=== PATIENT | male | born 1940 | race Caucasian/White ===

== ENCOUNTER 2016-12-26 12:47 | Observation (INO) | payer MEDICARE, BC ==
[2016-12-26] MEDS ORDERED: NS 0.9% 1000 ML* 1,000 ML IV ONE (13:47)
--- NOTE | 2016-12-26 14:01 | RAD ---
HISTORY: Weakness COMPARISONS: August 30, 2017 VIEWS:1: Single frontal portable view of the chest at 1:34 PM FINDINGS: LINES AND TUBES: None. CARDIOMEDIASTINAL SILHOUETTE: The cardiomediastinal silhouette is normal for portable technique. PLEURA: The costophrenic angles are sharp. No pleural abnormalities are noted. LUNG PARENCHYMA: The lungs are clear. ABDOMEN: The upper abdomen is clear. There is no subphrenic gas. BONES AND SOFT TISSUES: No bone or soft tissue abnormalities are noted. IMPRESSION: NO ACTIVE CARDIOPULMONARY DISEASE.
[2016-12-26 14:56] LABS: Hematocrit 41 % (42-52); Hemoglobin 13.6 g/dl (14.0-18.0); Mean Corpuscular HGB Conc 33 g/dl (31-36); Mean Corpuscular Hemoglobin 30 pg (27-31); Mean Corpuscular Volume 90 fL (80-94); Mean Platelet Volume 8 um3 (7.4-10.4); Red Blood Count 4.62 10^6/ul (4.0-5.4); Red Cell Distribution Width 13 % (10.5-15); White Blood Count 6.3 10^3/ul (3.5-10.8)
[2016-12-26] MEDS: NS 0.9% 1000 ML* 1,000 ML IV ONE ×2 (14:59→17:16)
[2016-12-26 15:02] LABS: Add Diff/Slide Review? Slide Review Added; Comments Flag Yes
[2016-12-26 15:11] LABS: Albumin 3.7 g/dL (3.2-5.2); BUN/Creatinine Ratio 21.4 (8-20); Calcium 8.9 mg/dL (8.6-10.3); EGFR African American 30.1 (>60); EGFR Non-African American 23.4 (>60); Globulin 3.6 g/dL (2-4); Potassium 3.3 mmol/L (3.5-5.0); Total Bilirubin 0.4 mg/dL (0.2-1.0); Total Protein 7.3 g/dL (6.4-8.9)
--- NOTE | 2016-12-26 15:11 | ED ---
Danny Hussein Benjamin, scribed for Roopa Reyes MD on 12/26/16 at 1355 . Complex/Multi-Sys Presentation - HPI Summary HPI Summary: 76yo male c/o V/D since Saturday from the stomach bug. Pt today came to ED for low BP. V/D is now resolved. Pt also had fever and chills, but not anymore. Denies black tarry stool, lightheadedness, SOB, or any urinary symptoms. Hx includes HTN. - History Of Current Complaint Chief Complaint: EDWeakness Time Seen by Provider: 12/26/16 13:27 Hx Obtained From: Patient Onset/Duration: Gradual Onset, Lasting Hours, Still Present Timing: Constant Severity Currently: Mild Severity Initially: Mild Location: Negative Associated Signs And Symptoms: Positive: Weakness - lightheadedness - Allergies/Home Medications Allergies/Adverse Reactions: Allergies Allergy/AdvReac Type Severity Reaction Status Date / Time No Known Allergies Allergy Verified 09/08/16 18:47 Home Medications: Home Medications Aspirin EC Low Dose* [Ecotrin EC Low Dose*] 81 mg PO DAILY 12/26/16 [History Confirmed 12/26/16] Cyanocobalamin TAB* [Vitamin B12 TAB*] 1,000 mcg PO DAILY 12/26/16 [History Confirmed 12/26/16] Lisinopril/HCTZ 20/12.5(NF) [Zestoretic 20/12.5(NF)] 1 tab PO DAILY 12/26/16 [ History Confirmed 12/26/16] Nadolol (NF) 20 mg PO DAILY 12/26/16 [History Confirmed 12/26/16] metroNIDAZOLE TAB* [Flagyl 250 mg TAB*] 500 mg PO TID 12/26/16 [History Confirmed 12/26/16] PMH/Surg Hx/FS Hx/Imm Hx Endocrine/Hematology History: Denies: Hx Diabetes Cardiovascular History: Reports: Hx Hypertension Denies: Hx Angina - heaviness with exertion on occ., Hx Coronary Artery Disease, Hx Hypercholesterolemia, Hx Myocardial Infarction, Hx Pacemaker/ICD, Hx Valvular Heart Disease Respiratory History: Denies: Hx Asthma, Hx Chronic Obstructive Pulmonary Disease (COPD) History: Denies: Hx Dialysis, Hx Renal Disease Sensory History: Denies: Hx Hearing Aid Psychiatric History: Denies: Hx Panic Disorder - Surgical History Surgery Procedure, Year, and Place: LAMINOTOMY T12-L1 AND LAMINECTOMY L3-L4 AND L4-L5 2007. HERNIA 2010. GALLBLADDER Infectious Disease History: No Infectious Disease History: Denies: Traveled Outside the [place] in Last 30 Days - Family History Known Family History: Positive: Hypertension - Social History Alcohol Use: Daily Alcohol Amount: 3 drinks (beer and wine) Substance Use Type: Reports: None Hx Tobacco Use: Yes Smoking Status (MU): Former Smoker Review of Systems Positive: Fever, Chills Eyes: Negative ENT: Negative Cardiovascular: Negative Respiratory: Negative Positive: Vomiting, Diarrhea Genitourinary: Negative Musculoskeletal: Negative Skin: Negative Positive: Weakness Psychological: Normal All Other Systems Reviewed And Are Negative: Yes Physical Exam Triage Information Reviewed: Yes Vital Signs On Initial Exam: Initial Vitals Temp Pulse Resp BP Pulse Ox 97.7 F 66 20 99/53 95 12/26/16 12:49 12/26/16 12:49 12/26/16 12:49 12/26/16 12:49 12/26/16 12:49 Vital Signs Reviewed: Yes Appearance: Positive: Well-Appearing, No Pain Distress, Well-Nourished Skin: Positive: Warm, Skin Color Reflects Adequate Perfusion, Dry Head/Face: Positive: Normal Head/Face Inspection Eyes: Positive: EOMI, ANGEL ENT: Positive: Hearing grossly normal, Pharynx normal, TMs normal Neck: Positive: Supple, Nontender Respiratory/Lung Sounds: Positive: Clear to Auscultation, Breath Sounds Present Cardiovascular: Positive: RRR Abdomen Description: Positive: Nontender, Soft Bowel Sounds: Positive: Present Musculoskeletal: Positive: Strength/ROM Intact Neurological: Positive: Sensory/Motor Intact, Alert, Oriented to Person Place, Time, CN Intact II-III Psychiatric: Positive: Affect/Mood Appropriate Diagnostics - Vital Signs Vital Signs Temp Pulse Resp BP Pulse Ox 12/26/16 12:49 97.7 F 66 20 99/53 95 - Laboratory Lab Results: Lab Results 12/26/16 Range/Units 14:40 WBC 6.3 (3.5-10.8) 10^3/ul RBC 4.62 (4.0-5.4) 10^6/ul Hgb 13.6 L (14.0-18.0) g/dl Hct 41 L (42-52) % MCV 90 (80-94) fL MCH 30 (27-31) pg MCHC 33 (31-36) g/dl RDW 13 (10.5-15) % Plt Count 239 (150-450) 10^3/ul MPV 8 (7.4-10.4) um3 Neut % (Auto) 66.4 (38-83) % Lymph % (Auto) 10.7 L (25-47) % [place] % (Auto) 16.2 H (1-9) % Eos % (Auto) 6.0 (0-6) % Baso % (Auto) 0.7 (0-2) % Absolute Neuts (auto) 4.2 (1.5-7.7) 10^3/ul Absolute Lymphs (auto) 0.7 L (1.0-4.8) 10^3/ul Absolute Monos (auto) 1.0 H (0-0.8) 10^3/ul Absolute Eos (auto) 0.4 (0-0.6) 10^3/ul Absolute Basos (auto) 0 (0-0.2) 10^3/ul Absolute Nucleated RBC 0 10^3/ul Nucleated RBC % 0 Result Diagrams: 12/26/16 14:40 Lab Statement: Any lab studies that have been ordered have been reviewed, and results considered in the medical decision making process. - Radiology CXR Xray Interpretation: No Acute Changes Radiology Interpretation Completed By: Radiologist Complex Multi-Symp Course/Dx Course Of Treatment: 76 yo male with several days of diarrhea went to see pmd because he was dizzy and noted to be hypotensive at his pmd. Here is mildly hypotensive fluids are hung and labs are pending. pt is being signed out to Dr. Pike - Diagnoses Provider Diagnoses: Hypotension Discharge - Discharge Plan Condition: Stable Disposition: OTHER Discharge Disposition Comment: disposition by Dr. Pike The documentation as recorded by the Danny markham Benjamin accurately reflects the service I personally performed and the decisions made by me, Roopa Reyes MD.
[2016-12-26 15:13] LABS: Troponin I 0.01 ng/mL (<0.04)
[2016-12-26 16:34] LABS: Urine Bilirubin Negative (Negative); Urine Glucose Negative (Negative); Urine Nitrite Negative (Negative)
[2016-12-26] MEDS ORDERED: Acetaminophen TAB* 325 MG PO PRN (16:46)
[2016-12-26] MEDS ORDERED: Ondansetron INJ* 2 MG/ML VIAL IV PRN (16:47)
[2016-12-26] MEDS ORDERED: Potassium Chlor TAB* 20 MEQ TAB.ER PO ONE (16:54)
[2016-12-26] MEDS: NS 0.9% 1000 ML* 1,000 ML IV SCH (18:18)
--- NOTE | 2016-12-26 21:35 | HP ---
HISTORY AND PHYSICAL: DATE OF ADMISSION: 12/26/16 PRIMARY CARE PHYSICIAN: Dr. Iqbal. ATTENDING PHYSICIAN: Dr. Santos Dfufy* (dictation provided by Steffany Rodriguez NP) . CHIEF COMPLAINT: Lightheadedness and generalized weakness. HISTORY OF PRESENT ILLNESS: Mr. Mendez is a 76-year-old male with a past medical history of sleep apnea, with home CPAP; hypertension; recent suspicion for ankylosing spondylitis followed by Dr. Reyna, who presented today to the hospital with concern for lightheadedness and generalized weakness. Mr. Mendez states that he has had some ongoing vague complaints, including some lightheadedness and back pain. He was initially seen by a clinician in [place] and it was summarized that perhaps the symptoms are related to previous infection with Lyme disease. He was treated with doxycycline for that. He completed a course of doxycycline but felt that there was no real change in his symptoms. He was then referred over to Dr. Reyna, who the patient reports felt that perhaps it is an unspecified spodyloarthopathy. Again, the patient had completed a course of doxycycline with no real change in symptoms and on Saturday, he developed the sudden onset of diarrhea. He states that his had had similar symptoms starting Saturday of the same week. On Saturday, he was feeling weak and did not tolerate oral intake very well. He continued to have symptoms until Saturday. He continued to take his home lisinopril/ hydrochlorothiazide. He tried to keep up with fluids but felt that he likely did not drink enough water. Today, he decided to see his primary care physician on a concern for lightheadedness and generalized weakness. While there , his blood pressure was noted to be in the 80s systolically and therefore, he was transferred to the emergency room. In the emergency room, Mr. Mendez's initial blood pressure was 99/53. It did go down to a glory of 85/46, but now after intravenous fluids it is 131/72. In addition to hypotension, the patient had acute kidney injury with BUN 57, creatinine 2.66. He is also hyponatremic and hypokalemic. Based on Mr. Mendez's presentation with acute kidney injury in the setting of dehydration from diarrhea, Hospital Medicine was called regarding admission. PAST MEDICAL HISTORY: 1. History of PVCs, on nadolol. 2. Sleep apnea, with CPAP. 3. History of cholecystectomy. 4. Hypertension. 5. Question of unspecified spodyloarthropathy. MEDICATIONS: 1. Aspirin 81 mg daily. 2. Lisinopril/hydrochlorothiazide 20/12.5 one tab p.o. daily. 3. Cyanocobalamin 1000 mcg p.o. daily. 4. Nadolol 20 mg p.o. daily. ALLERGIES: No known drug allergies. FAMILY HISTORY: The patient reports his mother related to pancreatic cancer and father had leukemia. SOCIAL HISTORY: The patient quit smoking in 1978. The patient drinks daily, most nights drinking 3 beers. He denies having any trouble when he has quit drinking alcohol in the past. He states his last alcoholic beverage was on . He denies any drug use. He states his is his healthcare proxy. REVIEW OF SYSTEMS: A 14-point review of systems was completed with Mr. Mendez and all those not mentioned above were negative. PHYSICAL EXAMINATION GENERAL: Mr. Pichardo is sitting in the bed. He is in no acute distress. He is calm and cooperative to my examination. VITAL SIGNS: Temperature 97.7, heart rate 74, respiratory rate 19, O2 saturation 94% on room air, blood pressure 131/72. LUNGS: Clear to auscultation bilaterally with no accessory muscle use and good aeration. HEART: S1, S2. No murmur, rub or gallop and regular. ABDOMEN: The abdomen is soft and nontender with bowel sounds positive x4. EXTREMITIES: No cyanosis or edema. NEURO: He is alert and oriented x3. He moves all extremities equally. There is no facial asymmetry or focal weakness. Extraocular movements are intact. SKIN: Intact. DIAGNOSTIC STUDIES/LAB DATA: Sodium 129, potassium 3.3, chloride 95, serum bicarbonate 25, BUN 57, creatinine 2.66, glucose 99. WBC 6.3, hemoglobin 13.6, hematocrit 41, platelet count 239. INR 0.97. Urine shows no evidence of infection. Chest x-ray shows no active cardiopulmonary disease. EKG shows a sinus rhythm with a heart rate of 60, no evidence of ischemia. ASSESSMENT AND PLAN: Mr. 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 Diarrhea has resolved. Plans are for observation in the hospital for the followin. Acute kidney injury: I suspect that that elevation of his BUN and creatinine is secondary to dehydration in the setting of diarrhea as well as use of lisinopril and hydrochlorothiazide. The patient will receive 2 L of IV fluids and then go on to a rate of 125 mL per hour overnight as long as he is no longer orthostatic by vital signs criteria which will be checked at 8:00 p.m. Plan to hold lisinopril/hydrochlorothiazide. Plan to recheck labs in the morning. Plan to dose all medications renally. 2. Hypotension: Now resolved. Continue to monitor and we will check orthostatic hypotension later this evening. 3. Diarrhea: Diarrhea has resolved. I suspect this is related to acute gastroenteritis as his is also ill. It could be related to doxycycline, but it certainly is resolved now and there is no evidence of Clostridium difficile. 4. Premature ventricular contractions: Continue nadolol. 5. Hypertension: Hold lisinopril and hydrochlorothiazide. 6. Code status: Full code. 7. Disposition: To medical floor. TIME SPENT: Approximately 60 minutes was spent on the admission of this patient , more than half the time spent with patient at the bedside reviewing the events leading up to this hospitalization, performing the physical examination, and reviewing my plan of care. STEFFANY RODRIGUEZ NP CC: Dr. Iqbal* [id number]/[facility] #: [id number] TACHO
[2016-12-26] MEDS: Heparin VIAL(*) 5000 UNITS/ML VIAL (FIVE THOUSAND) SUBCUT SCH (23:37)
[2016-12-27] MEDS: NS 0.9% 1000 ML* 1,000 ML IV SCH (02:00)
[2016-12-27] MEDS: Heparin VIAL(*) 5000 UNITS/ML VIAL (FIVE THOUSAND) SUBCUT SCH (06:05)
[2016-12-27 06:57] LABS: BUN/Creatinine Ratio 24.5 (8-20); Calcium 8.7 mg/dL (8.6-10.3); EGFR African American 57.9 (>60); Potassium 3.9 mmol/L (3.5-5.0)
[2016-12-27] MEDS ORDERED: NS 0.9% 1000 ML* 1,000 ML IV ONE (07:35)
[2016-12-27] MEDS ORDERED: Aspirin EC Low Dose* 81 MG TAB.EC PO SCH (09:00)
[2016-12-27] MEDS ORDERED: Cyanocobalamin TAB* 500 MCG PO SCH (09:00)
[2016-12-27] MEDS ORDERED: NADOLOL 40 MG PO SCH (09:00)
[2016-12-27 09:50] VITALS: BP 114/55
--- NOTE | 2016-12-27 13:35 | DS ---
DISCHARGE SUMMARY: DATE OF ADMISSION: 12/26/16 DATE OF DISCHARGE: 12/27/16 PRIMARY CARE PROVIDER: Dr. Gianna Iqbal. DISCHARGING PROVIDER: FREDERICK Carver. SUPERVISING PHYSICIAN: Breonna Schuster MD.* (DICTATED BY FREDERICK CARVER) PRIMARY DISCHARGE DIAGNOSES: 1. Acute kidney injury secondary to hypovolemia. 2. Symptomatic hypotension. 3. Viral gastroenteritis. SECONDARY DISCHARGE DIAGNOSES: 1. Obstructive sleep apnea, compliant with CPAP. 2. Hypertension. 3. History of frequent premature ventricular contractions. 4. Questionable diagnosis of ankylosing spondylitis, currently being followed by Dr. Salazar. DISCHARGE MEDICATIONS: 1. Aspirin 81 mg p.o. daily. 2. Vitamin B12 1000 mcg p.o. daily. 3. Lisinopril/hydrochlorothiazide 20/12.5 mg 1 tablet p.o. daily. 4. Nadolol 20 mg p.o. daily. MEDICATION CHANGES: Lisinopril and hydrochlorothiazide were held during his hospital stay with instructions to resume either tomorrow or the following day, but no change in dose. HOSPITAL IMAGING: Chest x-ray shows no acute process. EKG shows a normal sinus rhythm without ischemic changes. HOSPITAL COURSE: This is a very pleasant 76-year-old gentleman with a history of hypertension, obstructive sleep apnea compliant with CPAP, history of frequent PVCs, for which he is treated with nadolol and a questionable diagnosis of ankylosing spondylitis under current evaluation with Dr. Salazar, who was transferred from his primary care provider's office with significant hypotension and complaints of weakness and lightheadedness. The patient developed some diarrhea about a week ago and has had very poor oral intake associated with that. No significant nausea or vomiting and the diarrhea had since resolved. Through this episode, the patient continued to be compliant with his antihypertensives including lisinopril and hydrochlorothiazide. He was complaining of significant weakness and lightheadedness, and presented to his primary care provider's office with these complaints yesterday. Systolic blood pressure was noted to be in the 80s and the patient was subsequently transferred to the emergency department for further evaluation. Blood pressure when he reached the emergency department was in the mid 90s systolic or so, and he had noted acute kidney injury, hyponatremia, and hypokalemia. The patient was subsequently admitted for acute kidney injury, likely secondary to hypovolemia and recent viral gastroenteritis. The patient's lisinopril and hydrochlorothiazide were held. He received a total of about 4 liters of normal saline. The patient's complaints of dizziness resolved prior to discharge. Orthostatic vital signs were negative prior to leaving. He was able to ambulate without any feelings of lightheadedness or shortness of breath. At the time of admission, sodium was 129 mmol/L improved to 135 at the time of discharge. Potassium was 3.3 improved to 3.9. BUN was 57 improved to 37, creatinine 2.66 improved to 1.51. Baseline creatinine is normal near 1.0. The patient indicates that his appetite had improved and he ate a full meal for breakfast. His urine output has been adequate given the amount of hydration that he received. His diarrhea has since resolved. DISPOSITION: The patient is being discharged to home where he lives with his . Instructions given to hold his lisinopril and hydrochlorothiazide today and may resume tomorrow or the following day as long as his oral intake remains adequate. Recommend repeating a basic metabolic panel in the next several days to ensure his renal function returns to normal, and I recommend close followup with his primary care provider to ensure his symptoms from this hospital admission has resolved completely. FREDERICK CARVER CC: Dr. Gianna Iqbal* [id number]/[facility] #: [id number] TACHO
== END 2016-12-27 10:30 | disposition home or self-care (01) ==
LOC: ED 12:47 → MEDTELE 16:43 → MED 12-27 01:44
PROVIDERS: ADMIT Internal Medicine; ATTEND Internal Medicine
DX: E86.1 Hypovolemia (principal); N17.9 Acute kidney failure, unspecified; I95.9 Hypotension, unspecified; A08.4 Viral intestinal infection, unspecified; G47.33 Obstructive sleep apnea (adult) (pediatric); I10 Essential (primary) hypertension; Z79.82 Long term (current) use of aspirin; Z87.891 Personal history of nicotine dependence; Z23 Encounter for immunization
CPT/HCPCS: 36415; 71010; 80048; 80053; 81003; 83605; 84484; 85025; 85610; 85730; 87040; 93005; 96374; 96375; 99284; A9270-GY; G0378; J1644

== ENCOUNTER 2018-03-23 12:12 | Emergency (ER) | payer MEDICARE, OTHER ==
[2018-03-23] MEDS ORDERED: NS 0.9% 1000 ML* 1,000 ML IV ONE (14:09)
[2018-03-23 14:37] LABS: ABS Basophils 0.1 10^3/ul (0-0.2); ABS Eosinophils 0.7 10^3/ul (0-0.6); ABS Lymphocytes 0.4 10^3/ul (1.0-4.8); ABS Monocytes 0.9 10^3/ul (0-0.8); ABS Neutrophils 10.9 10^3/ul (1.5-7.7); ABS Nucleated RBC 0 10^3/ul; Eosinophil % 5.2 % (0-6); Hematocrit 40 % (42-52); Hemoglobin 13.6 g/dl (14.0-18.0); Lymphocyte % 3.3 % (25-47); Mean Corpuscular HGB Conc 34 g/dl (31-36); Mean Corpuscular Hemoglobin 31 pg (27-31); Mean Corpuscular Volume 90 fL (80-94); Mean Platelet Volume 7.5 um3 (7.4-10.4); Nucleated Red Blood Cells % 0.1; Platelet Count 273 10^3/ul (150-450); Red Blood Count 4.46 10^6/ul (4.0-5.4); Red Cell Distribution Width 13 % (10.5-15); White Blood Count 12.9 10^3/ul (3.5-10.8)
[2018-03-23 14:51] LABS: EGFR Non-African American 47.8 (>60)
--- NOTE | 2018-03-23 14:59 | RAD ---
HISTORY: Rule out osteo-. No other history is provided. COMPARISONS: None VIEWS: 3, Frontal, lateral, and oblique views of the right foot FINDINGS: BONE DENSITY: There is diffuse osteopenia. BONES: There is no displaced fracture. There is no appreciable erosion or periosteal reaction. JOINTS: There is osteoarthritis of the first MTP joint. ALIGNMENT: There is hallux valgus. SOFT TISSUES: Unremarkable. OTHER FINDINGS: None. IMPRESSION: 1. OSTEOPENIA. 2. 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 3. NO APPRECIABLE EROSION OR PERIOSTEAL REACTION. PLAIN FILM FINDINGS OF OSTEOMYELITIS ARE RELATIVELY LATE FINDINGS. IF THERE IS PERSISTENT CLINICAL CONCERN FOR OSTEOMYELITIS, RECOMMEND CORRELATION WITH FOLLOWUP IMAGING, THREE-PHASE BONE SCANNING, WHITE BLOOD CELL SCAN, AND/OR MRI OF THE AFFECTED REGION.
--- NOTE | 2018-03-23 15:00 | RAD ---
HISTORY: Weakness, dehydration, low blood pressure COMPARISONS: July 26, 2017 VIEWS: 1: frontal portable view of the chest at 2:25 PM FINDINGS: LINES AND TUBES: None. CARDIOMEDIASTINAL SILHOUETTE: The cardiomediastinal silhouette is normal for portable technique. PLEURA: The costophrenic angles are sharp. No pleural abnormalities are noted. LUNG PARENCHYMA: The lungs are clear. ABDOMEN: The upper abdomen is clear. There is no subphrenic gas. BONES AND SOFT TISSUES: No bone or soft tissue abnormalities are noted. IMPRESSION: NO ACTIVE CARDIOPULMONARY DISEASE.
[2018-03-23 15:24] LABS: Urine Appearance Cloudy; Urine Blood Negative (Negative); Urine Color Amber; Urine Ketones 1+ (Negative); Urine Protein 1+(30 mg/dL) (Negative); Urine Specific Gravity 1.025 (1.010-1.030); Urine Urobilinogen Negative (Negative)
[2018-03-23 16:10] VITALS: BP 000/00
--- NOTE | 2018-03-23 16:29 | ED ---
Edna Hussein Gabriel, scribed for Thomas Dueñas MD on 03/23/18 at 1405 . Complex/Multi-Sys Presentation - HPI Summary HPI Summary: This patient is a 77 year old M presenting to [facility] because he is worried that he is dehydrated. Pt has an infected toe and is seen at the wound clinic, he is taking large doses of abx. 2 days ago the pt had severe chills and diaphoresis; he did not have a fever. That resolved the next day. Patient reports weakness and decreased appetite. Patient denies BRAXTON, dizziness, n/v/d, CP, SOB, and palpitations. Pt had blood sugar of 82. - History Of Current Complaint Chief Complaint: EDWeakness Time Seen by Provider: 03/23/18 13:52 Hx Obtained From: Patient Onset/Duration: Lasting Days - 2, Still Present Timing: Constant Severity Currently: Mild Severity Initially: Mild Associated Signs And Symptoms: Positive: Other - weakness and decreased appetite - Allergies/Home Medications Allergies/Adverse Reactions: Allergies Allergy/AdvReac Type Severity Reaction Status Date / Time No Known Allergies Allergy Verified 03/23/18 12:15 PMH/Surg Hx/FS Hx/Imm Hx Endocrine/Hematology History: Denies: Hx Diabetes Cardiovascular History: Reports: Hx Hypertension - MEDICATED Denies: Hx Angina - heaviness with exertion on occ., Hx Coronary Artery Disease, Hx Hypercholesterolemia, Hx Myocardial Infarction, Hx Pacemaker/ICD, Hx Valvular Heart Disease Respiratory History: Denies: Hx Asthma, Hx Chronic Obstructive Pulmonary Disease (COPD) GI History: Denies: Hx Gastrointestinal Bleed, Hx Hiatal Hernia History: Denies: Hx Dialysis, Hx Renal Disease Musculoskeletal History: Comment Only: Other Musculoskeletal History - possible spondylosis Sensory History: Reports: Hx Contacts or Glasses Denies: Hx Hearing Aid Opthamlomology History: Reports: Hx Contacts or Glasses Psychiatric History: Denies: Hx Eating Disorder, Hx Oppositional [place] Disorder, Hx Panic Disorder - Surgical History Surgery Procedure, Year, and Place: LAMINOTOMY T12-L1 AND LAMINECTOMY L3-L4 AND L4-L5 2007. HERNIA 2010. GALLBLADDER. LT KNEE MENISCUS REPAIR Infectious Disease History: No Infectious Disease History: Denies: Traveled Outside the [place] in Last 30 Days - Family History Known Family History: Positive: Hypertension Negative: Respiratory Disease, Seizure Disorder - Social History Alcohol Use: Daily Alcohol Amount: 3 drinks (beer and wine) Substance Use Type: Reports: None Hx Tobacco Use: Yes - quit 40+ yrs ago Smoking Status (MU): Former Smoker Review of Systems Constitutional: Other - dehydrated and decreased appetite Negative: Palpitations, Chest Pain Negative: Shortness Of Breath Negative: Vomiting, Diarrhea, Nausea Neurological: Negative - dizziness Positive: Weakness. Negative: Headache All Other Systems Reviewed And Are Negative: Yes Physical Exam - Summary Physical Exam Summary: VITAL SIGNS: Reviewed. GENERAL: Patient is a well-developed and nourished male who is lying comfortable in the stretcher. Patient is not in any acute respiratory distress. HEAD AND FACE: No signs of trauma. No ecchymosis, hematomas or skull depressions. No sinus tenderness. EYES: PERRLA, EOMI x 2, No injected conjunctiva, no nystagmus. EARS: Hearing grossly intact. Ear canals and tympanic membranes are within normal limits. MOUTH: Oropharynx within normal limits. NECK: Supple, trachea is midline, no adenopathy, no JVD, no carotid bruit, no c- spine tenderness, neck with full ROM. CHEST: Symmetric, no tenderness at palpation LUNGS: Clear to auscultation bilaterally. No wheezing or crackles. CVS: Regular rate and rhythm, S1 and S2 present, no murmurs or gallops appreciated. ABDOMEN: Soft, non-tender. No signs of distention. No rebound no guarding, and no masses palpated. Bowel sounds are normal. EXTREMITIES: FROM in all major joints, no edema, no cyanosis or clubbing. NEURO: Alert and oriented x 3. No acute neurological deficits. Speech is normal and follows commands. SKIN: Dry and warm, I am unable to see the right toe because the pt did not want to remove the bandage. He states the wound clinic suggested he not remove the bandage Triage Information Reviewed: Yes Vital Signs On Initial Exam: Initial Vitals Temp Pulse Resp BP Pulse Ox 98.1 F 61 14 110/66 100 03/23/18 12:17 03/23/18 12:17 03/23/18 12:17 03/23/18 12:17 03/23/18 12:17 Vital Signs Reviewed: Yes Diagnostics - Vital Signs Vital Signs Temp Pulse Resp BP Pulse Ox 03/23/18 12:17 98.1 F 61 14 110/66 100 - Laboratory Lab Results: Lab Results 03/23/18 03/23/18 03/23/18 Range/Units 14:22 14:22 14:22 WBC 12.9 H (3.5-10.8) 10^3/ul RBC 4.46 (4.0-5.4) 10^6/ul Hgb 13.6 L (14.0-18.0) g/dl Hct 40 L (42-52) % MCV 90 (80-94) fL MCH 31 (27-31) pg MCHC 34 (31-36) g/dl RDW 13 (10.5-15) % Plt Count 273 (150-450) 10^3/ul MPV 7.5 (7.4-10.4) um3 Neut % (Auto) 84.5 H (38-83) % Lymph % (Auto) 3.3 L (25-47) % [place] % (Auto) 6.6 (0-7) % Eos % (Auto) 5.2 (0-6) % Baso % (Auto) 0.4 (0-2) % Absolute Neuts (auto) 10.9 H (1.5-7.7) 10^3/ul Absolute Lymphs (auto) 0.4 L (1.0-4.8) 10^3/ul Absolute Monos (auto) 0.9 H (0-0.8) 10^3/ul Absolute Eos (auto) 0.7 H (0-0.6) 10^3/ul Absolute Basos (auto) 0.1 (0-0.2) 10^3/ul Absolute Nucleated RBC 0 10^3/ul Nucleated RBC % 0.1 ESR 94 H (0-40) mm/Hr INR (Anticoag Therapy) 1.00 (0.77-1.02) APTT 28.4 (26.0-36.3) seconds Fibrinogen 672.8 H (110.8-404.3) mg/dL Sodium 132 L (139-145) mmol/L Potassium 4.2 (3.5-5.0) mmol/L Chloride 98 L (101-111) mmol/L Carbon Dioxide 24 (22-32) mmol/L Anion Gap 10 (2-11) mmol/L BUN 30 H (6-24) mg/dL Creatinine 1.43 H (0.67-1.17) mg/dL Est GFR ( Amer) 61.5 (>60) Est GFR (Non-Af Amer) 47.8 (>60) BUN/Creatinine Ratio 21.0 H (8-20) Glucose 100 (70-100) mg/dL Lactic Acid (0.5-2.0) mmol/L Calcium 9.0 (8.6-10.3) mg/dL Total Bilirubin 0.50 (0.2-1.0) mg/dL AST 16 (13-39) U/L ALT 12 (7-52) U/L Alkaline Phosphatase 53 (34-104) U/L Troponin I 0.00 (<0.04) ng/mL C-Reactive Protein 141.60 H (< 5.00) mg/L B-Natriuretic Peptide ( - 100) pg/mL Total Protein 7.5 (6.4-8.9) g/dL Albumin 3.7 (3.2-5.2) g/dL Globulin 3.8 (2-4) g/dL Albumin/Globulin Ratio 1.0 (1-3) Urine Color Urine Appearance Urine pH (5-9) Ur Specific [place] (1.010-1.030) Urine Protein (Negative) Urine Ketones (Negative) Urine Blood (Negative) Urine Nitrate (Negative) Urine Bilirubin (Negative) Urine Urobilinogen (Negative) Ur Leukocyte Esterase (Negative) Urine WBC (Auto) (Absent) Urine RBC (Auto) (Absent) Urine Bacteria (Absent) Hyaline Casts (Absent) Urine Glucose (Negative) Urine Ascorbic Acid (Negative) 03/23/18 03/23/18 03/23/18 Range/Units 14:22 14:22 15:12 WBC (3.5-10.8) 10^3/ul RBC (4.0-5.4) 10^6/ul Hgb (14.0-18.0) g/dl Hct (42-52) % MCV (80-94) fL MCH (27-31) pg MCHC (31-36) g/dl RDW (10.5-15) % Plt Count (150-450) 10^3/ul MPV (7.4-10.4) um3 Neut % (Auto) (38-83) % Lymph % (Auto) (25-47) % [place] % (Auto) (0-7) % Eos % (Auto) (0-6) % Baso % (Auto) (0-2) % Absolute Neuts (auto) (1.5-7.7) 10^3/ul Absolute Lymphs (auto) (1.0-4.8) 10^3/ul Absolute Monos (auto) (0-0.8) 10^3/ul Absolute Eos (auto) (0-0.6) 10^3/ul Absolute Basos (auto) (0-0.2) 10^3/ul Absolute Nucleated RBC 10^3/ul Nucleated RBC % ESR (0-40) mm/Hr INR (Anticoag Therapy) (0.77-1.02) APTT (26.0-36.3) seconds Fibrinogen (110.8-404.3) mg/dL Sodium (139-145) mmol/L Potassium (3.5-5.0) mmol/L Chloride (101-111) mmol/L Carbon Dioxide (22-32) mmol/L Anion Gap (2-11) mmol/L BUN (6-24) mg/dL Creatinine (0.67-1.17) mg/dL Est GFR ( Amer) (>60) Est GFR (Non-Af Amer) (>60) BUN/Creatinine Ratio (8-20) Glucose (70-100) mg/dL Lactic Acid 1.1 (0.5-2.0) mmol/L Calcium (8.6-10.3) mg/dL Total Bilirubin (0.2-1.0) mg/dL AST (13-39) U/L ALT (7-52) U/L Alkaline Phosphatase (34-104) U/L Troponin I (<0.04) ng/mL C-Reactive Protein (< 5.00) mg/L B-Natriuretic Peptide 66 ( - 100) pg/mL Total Protein (6.4-8.9) g/dL Albumin (3.2-5.2) g/dL Globulin (2-4) g/dL Albumin/Globulin Ratio (1-3) Urine Color Jazz Urine Appearance Cloudy Urine pH 5.0 (5-9) Ur Specific [place] 1.025 (1.010-1.030) Urine Protein 1+(30 mg/dl) A (Negative) Urine Ketones 1+ A (Negative) Urine Blood Negative (Negative) Urine Nitrate Negative (Negative) Urine Bilirubin Negative (Negative) Urine Urobilinogen Negative (Negative) Ur Leukocyte Esterase Negative (Negative) Urine WBC (Auto) Trace(0-5/hpf) (Absent) Urine RBC (Auto) Trace(0-2/hpf) (Absent) Urine Bacteria Absent (Absent) Hyaline Casts Present A (Absent) Urine Glucose Negative (Negative) Urine Ascorbic Acid * A (Negative) Result Diagrams: 03/23/18 14:22 03/23/18 14:22 Lab Statement: Any lab studies that have been ordered have been reviewed, and results considered in the medical decision making process. - Radiology Foot xray Radiology Interpretation Completed By: Radiologist - 1. OSTEOPENIA. 2. 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 3. NO APPRECIABLE EROSION OR PERIOSTEAL REACTION. PLAIN FILM FINDINGS OF OSTEOMYELITIS ARE RELATIVELY LATE FINDINGS. IF THERE IS PERSISTENT CLINICAL CONCERN FOR OSTEOMYELITIS, RECOMMEND CORRELATION WITH FOLLOWUP IMAGING, THREE-PHASE BONE SCANNING, WHITE BLOOD CELL SCAN, AND/OR MRI OF THE AFFECTED REGION. ED physician has reviewed this radiology report. CXR Radiology Interpretation Completed By: Radiologist - No active cardiopulmonary disease ED physician has reviewed this radiology report. Re-Evaluation - Re-Evaluation First Eval Re-Evaluation Time: 15:49 Change: Unchanged Comment: The pt is refusing to admission. Complex Multi-Symp Course/Dx Assessment/Plan: Patient is a 77-year-old male who presents to the emergency room complaining of the patient is having chills and rigors since yesterday. Patient reports that he has a right toe infection for which he has taken 3 doses of antibiotics. He has taken doxycycline, ciprofloxacin, and Augmentin. He also has been seen in the wound clinic once a week for the last couple weeks. Blood work reveals a modest amount of 12.940 increased neutrophils. The patients fibrinogen is 672. Sodium 132 chloride 98, BUN 30 and creatinine 1.43. CRP is 141. Urinalysis is negative for UTI. Foot x-ray shows osteopenia, or sweats arthritis of the first MTP joint with Hallux valgus. There is no periosteal reaction. Charles is a persistent clinical correlation for cellulitis to recommend MRI. I believe the patient may have another similar is therefore here for the patient to start the patient on vancomycin, clindamycin for an admission to the hospital. The patient refuses. The patient refuses antibiotics and also admission. The patient also refuses by mouth antibiotics to go home. I extensively discussed with the patient the benefits and risk of leaving AMA. I also discussed the alternatives to leaving AMA, however, the patient still insist to leave the hospital AMA.. The primary nurse and the charge nurse also strongly recommended that the patient should not leave AMA. Patient understands the risk of leaving AMA, which includes but is not restricted to . Patient is Alert and oriented times three and patient verbalizes understanding. Patient has full capacity and is cognitively intact. Patient signed the AMA form. Patient was also advised to return to ED if he changes his mind or if the symptoms worsen or other symptoms appear. Patient understands and agrees. Patient reports that he will follow-up with Dr. Brand and his primary care physician - Diagnoses Provider Diagnoses: Toe infection, Left against medical advice - Physician Notifications Discussed Care Of Patient With: Breonna Ryder Time Discussed With Above Provider: 15:44 Instructed by Provider To: Admit As Inpatient Discharge - Sign-Out/Discharge Documenting (check all that apply): Discharge/Admit/Transfer - left ama - Discharge Plan Condition: Fair Disposition: AGAINST MEDICAL ADVICE Referrals: Gianna Iqbal MD [Primary Care Provider] - - Billing Disposition and Condition Condition: FAIR Disposition: AMA The documentation as recorded by the Edna markham Gabriel accurately reflects the service I personally performed and the decisions made by me, Thomas Dueñas MD.
== END 2018-03-23 16:07 | disposition left against medical advice (07) ==
LOC: ED 12:12
DX: L08.9 Local infection of the skin and subcutaneous tissue, unspecified (principal); Z53.21 Procedure and treatment not carried out due to patient leaving prior to being seen by health care provider; Z87.891 Personal history of nicotine dependence; I10 Essential (primary) hypertension
CPT/HCPCS: 36415; 71045; 80053; 81003; 81015; 83605; 83880; 84484; 85025; 85384; 85610; 85652; 85730; 86140; 87040; 87086; 96360; 99282